=== PATIENT | female | born 1990 | race African-American/Black ===

== ENCOUNTER 2016-03-18 21:06 | Inpatient (IN) | payer MEDICAID ==
[~2016-03-18] VITALS: Ht 170.2 cm; Wt 95.3 kg
[2016-03-18] MEDS ORDERED: METOCLOPRAMIDE 10 MG/2 ML VIAL IV PUSH PRN (21:35)
[2016-03-18] MEDS ORDERED: FAMOTIDINE 20 MG INJ IV PRN (21:35)
[2016-03-18] MEDS ORDERED: ACETAMINOPHEN 325 MG TAB PO PRN (21:35)
[2016-03-18] MEDS ORDERED: LIDOCAINE 1% BUFFERED 1 ML SYR INTRADERM PRN (21:35)
[2016-03-18] MEDS ORDERED: ONDANSETRON 4 MG VIAL IV PRN (21:35)
[2016-03-18] MEDS ORDERED: ALU/MAG/SIM 30 ML UDC PO PRN (21:35)
[2016-03-18] MEDS ORDERED: TERBUTALINE 1 MG/ML VIAL SUBQ PRN (21:35)
[2016-03-18] MEDS ORDERED: CEFAZOLIN (LD/OB) 100 ML IV PRN (21:35)
[2016-03-18] MEDS ORDERED: FAMOTIDINE 20 MG TAB PO PRN (21:35)
[2016-03-18] MEDS ORDERED: PROMETHAZINE 25 MG/ML VIAL IV PRN (21:35)
[2016-03-18] MEDS ORDERED: LIDOCAINE 1% 30 ML PF INFILTRATE ONE (21:35)
[2016-03-18] MEDS: LACT RINGERS 1,000 ML IV SCH ×2 (21:58→23:27)
[2016-03-18] MEDS ORDERED: FENTANYL 100 MCG/2 ML AMP ONE (23:21)
[2016-03-18] MEDS ORDERED: ROPIV/FENT 0.2%-2MCG/ML 100 ML EPIDURAL ONE (23:22)
[2016-03-19] VITALS (14 sets, daily range): BP systolic 109–127; RESP 16–20; TEMP 97.6–98.5; Ht 170.2 cm; Wt 95.3 kg
[2016-03-19] MEDS ORDERED: ROPIV/FENT 0.2%-2MCG/ML 100 ML EPIDURAL SCH (00:10)
[2016-03-19] MEDS ORDERED: FENTANYL 100 MCG/2 ML AMP EPIDURAL ONE (00:10)
[2016-03-19] MEDS ORDERED: SODIUM CHLORIDE 0.9% 500 ML IV PRN (00:10)
[2016-03-19] MEDS ORDERED: LACT RINGERS 500 ML IV ONE (00:10)
[2016-03-19] MEDS ORDERED: LACT RINGERS 500 ML IV PRN (00:10)
[2016-03-19] MEDS ORDERED: MAG HYDROX 30 ML UDC PO PRN (01:55)
[2016-03-19] MEDS ORDERED: DERMOPLAST SPRAY TOPICAL PRN (01:55)
[2016-03-19] MEDS ORDERED: MEASLES,MUMPS,RUBELLA VAC SUBQ.VACC ONE (01:55)
[2016-03-19] MEDS ORDERED: ASTRINGENT MED PADS 40'S TOPICAL PRN (01:55)
[2016-03-19] MEDS ORDERED: TDaP 0.5 ML VIAL IM.VACC ONE (01:55)
[2016-03-19] MEDS ORDERED: ZOLPIDEM 5 MG TAB PO PRN (01:55)
[2016-03-19] MEDS ORDERED: OXYTOCIN 15 UNITS/250 ML NS 250 ML IV SCH (01:55)
[2016-03-19] MEDS: OXYTOCIN 15 UNITS/250 ML NS 250 ML IV SCH ×2 (02:05→02:06)
[2016-03-19] MEDS: Ibuprofen 600 MG TAB PO SCH ×4 (05:10→23:17)
[2016-03-19] MEDS ORDERED: **ONLY ANESTEHSIA MAY ORDER OPIATES WHILE ON EPIDURAL XX SCH (08:00)
[2016-03-19] MEDS: DOCUSATE SOD 100 MG CAP PO SCH (09:42)
[2016-03-19] MEDS: OXYCODONE/APAP 5/325 TAB PO PRN (09:43)
[2016-03-20 01:27] VITALS: BP_SYST 113; RESP 18; TEMP 97.5
[2016-03-20] MEDS: OXYCODONE/APAP 5/325 TAB PO PRN (02:04)
[2016-03-20 05:08] VITALS: BP_SYST 110; RESP 16; TEMP 97.9
[2016-03-20] MEDS: Ibuprofen 600 MG TAB PO SCH (05:34)
[2016-03-20 08:22] VITALS: BP_SYST 110; RESP 16; TEMP 97.9
[2016-03-20 09:36] VITALS: BP_SYST 110; RESP 16; TEMP 97.3
[2016-03-20] MEDS ORDERED: TDaP 0.5 ML VIAL IM.VACC ONE (09:44)
[2016-03-20] MEDS: DOCUSATE SOD 100 MG CAP PO SCH (09:48)
== END 2016-03-20 11:11 | disposition home or self-care (01) | DRG 775 ==
LOC: LDOP 21:06 → LD 21:36 → OB 03-19 05:15
PROVIDERS: ADMIT Obstetrics & Gynecology; ATTEND Obstetrics & Gynecology
PROC: 10907ZC Drainage of Amniotic Fluid, Therapeutic from Products of Conception, Via Natural or Artificial Opening (ICD-10-PCS; 2016-03-18)
PROC: 10E0XZZ Delivery of Products of Conception, External Approach (ICD-10-PCS; principal; 2016-03-19)
DX: O80 Encounter for full-term uncomplicated delivery (principal); Z23 Encounter for immunization; Z37.0 Single live birth; Z3A.37 37 weeks gestation of pregnancy
CPT/HCPCS: 82803; 85014; 85018; 85025; 96372